=== PATIENT | female | born 1990 | race African-American/Black ===

== ENCOUNTER 2023-08-02 02:23 | Emergency (ER) | payer OTHER, MEDICAID, SELFPAY ==
[2023-08-02 02:27] VITALS: BP 132/90; PULSE 88; RESP 24; TEMP 36.5; O2SAT 98
--- NOTE | 2023-08-02 02:27 | ECG_ITS ---
SEE SCANNED COPY FOR CONFIRMED REPORT MTDD
[2023-08-02 02:31] VITALS: BP 138/82; PULSE 74; RESP 18; TEMP 36.7; O2SAT 100
[2023-08-02 02:51] LABS: Hematocrit 34.9 % (37.0-47.0); Hemoglobin 11.2 g/dL (12.0-15.0); Mean Corpuscular HGB Conc 32.1 g/dl (32-36); Mean Corpuscular Hemoglobin 29.9 pg (26-34); Mean Corpuscular Volume 93.1 fl (80-100); Mean Platelet Volume 10.4 fl (7.4-10.4); Platelet Count Result 256 k/mm3 (150-375); Red Blood Count 3.75 M/mm3 (4.2-5.4); Red Cell Distribution Width 12.8 % (11.5-14.5); White Blood Count 7.8 K/mm3 (4.5-10.0)
[2023-08-02 03:02] LABS: Alanine Aminotransferase 24 U/L (6-35); Alkaline Phosphatase 70 U/L (38-126); Anion Gap 9 mmol/L (4-12); Aspartate Amino Transferase 62 U/L (14-36); Bilirubin,Total 0.3 mg/dL (0.2-1.3); Blood Urea Nitrogen 15 mg/dL (7-17); Calcium 9.1 mg/dL (8.4-10.2); Carbon Dioxide 22 mmol/L (22-30); Chloride 106 mmol/L (98-107); Estimated CRCL calculation 74 ml/min; Estimated Glomerular Filt Rate > 60; Glucose 204 mg/dL (65-110); Lipase 164 U/L (23-300); Potassium 3.5 mmol/L (3.4-5.0); Sodium 137 mmol/L (137-145)
[2023-08-02 03:22] LABS: Basophils Absolute Manual 0.07 K/mm3 (0.0-0.1); Basophils Percent Manual 1 % (0-1); Eosinophils Absolute Manual 0.07 K/mm3 (0.02-0.50); Eosinophils Percent Manual 1 % (0-4); Monocytes Absolute Manual 0.31 K/mm3 (0.1-0.90); Monocytes Percent Manual 4 % (3-9); Neutrophils Percent Manual 25 % (46-73); Total Cells Counted 100
[2023-08-02 03:23] LABS: Metamyelocytes Percent 4 %
[2023-08-02 03:24] LABS: Lymphocytes Absolute Manual 5.07 K/mm3 (1.1-4.5); Lymphocytes Percent Manual 65 % (18-44); Platelet Estimate Adequate (Adequate); Schistocytes None Seen
[2023-08-02 04:34] VITALS: BP 123/76; PULSE 71; RESP 18; O2SAT 100
[2023-08-02] MEDS: SODIUM CHLORIDE 0.9% IV 1,000 ML 999 ML IV CONT (05:03)
[2023-08-02] MEDS: ONDANSETRON INJ 4 MG/2 ML VIAL IV PUSH (05:03)
[2023-08-02 05:15] LABS: Appearance Urine Clear (Clear); Bacteria Urine Rare /hpf; Bilirubin Urine Negative (Negative); Blood Urine Negative (Negative); Color Urine Yellow (Yellow); Glucose Urine UA Negative (Negative); Ketones Urine Negative (Negative); Leukocyte Esterase Ur Trace LEU/UL (Negative); Nitrate Urine Negative (Negative); Non Pathogenic Casts 0-2; Protein Urine Negative (Negative); RBC Urine 0-2 /hpf (0-2); Squamous Epithelial Cell Urine Occasional /hpf (Few); Urobilinogen Urine 0.2 mg/dL (<2.0); pH Urine 6.5 (5.0-9.0)
[2023-08-02 05:16] LABS: Add Urine Microscopic? YES
--- NOTE | 2023-08-02 06:07 | ED.GENADULT ---
HPI - General Adult General Chief complaint: Abdominal Pain Stated complaint: abd pain Time Seen by Provider: 08/02/23 04:39 History of Present Illness HPI narrative: Patient 33-year-old female who presents emergency department with chief complaint of nausea vomiting and stomach cramping. Patient reports the symptoms started about 30 minutes prior to arrival by the time she arrived in emergency department cramping inserted improved still feel now nauseated. Patient denies fever reports that she had no diarrhea reports that her abdominal discomfort has completely resolved at this point. Related Data Allergies Allergy/AdvReac Type Severity Reaction Status Date / Time No Known Allergies Allergy Verified 08/02/23 02:23 Review of Systems Review of Systems: A 10 system review of systems was completed on the patient and is negative except for what is stated in the HPI. Nursing and ancillary documentation was reviewed. Exam Narrative: GENERAL: Well-appearing, well-nourished, and in no acute distress. HEAD: Normocephalic, atraumatic. EYES: PERRLA and EOMI. ENT: Nares clear, no rhinorrhea or epistaxis. Mucous membranes moist. NECK: Supple. CHEST: Clear to auscultation. No respiratory distress. HEART: Regular rate and rhythm. No murmur heard. Normal peripheral pulses. ABDOMEN: Soft, nontender, nondistended, normal active bowel sounds. EXTREMITIES: Normal range of motion. No edema. SKIN: Warm, dry, no rash. NEURO: No focal deficits. Alert and oriented x3. PSYCH: Normal mood and affect. Course Vital Signs Vital signs: Vital Signs Temperature 36.5 C 08/02/23 02:27 Pulse Rate 88 08/02/23 02:27 Respiratory Rate 24 H 08/02/23 02:27 Blood Pressure 132/90 08/02/23 02:27 Pulse Oximetry 98 08/02/23 02:27 Oxygen Delivery Room Air 08/02/23 02:27 Temperature 36.7 C 08/02/23 02:31 Pulse Rate 71 08/02/23 04:34 Respiratory Rate 18 08/02/23 04:34 Blood Pressure 123/76 08/02/23 04:34 Pulse Oximetry 100 08/02/23 04:34 Oxygen Delivery Room Air 08/02/23 02:31 Medical Decision Making [facility] Narrative Medical decision making narrative: Differential diagnosis includes gastroenteritis, viral illness, nausea vomiting. Gastritis Laboratory studies were obtained the patient showed a white count of 7.8 electrolytes are within normal limits glucose was 204 but no anion gap and CO2 was 22 lipase was normal at 164 urinalysis showed 11-20 white blood cells in the urine The patient is feeling much better after receiving antiemetics and IV fluids. The patient was started on Keflex and also will be given a prescription for Zofran. Vital Signs Vital Signs: Vital Signs Temperature 36.5 C 08/02/23 02:27 Pulse Rate 88 08/02/23 02:27 Respiratory Rate 24 H 08/02/23 02:27 Blood Pressure 132/90 08/02/23 02:27 Pulse Oximetry 98 08/02/23 02:27 Oxygen Delivery Room Air 08/02/23 02:27 Temperature 36.7 C 08/02/23 02:31 Pulse Rate 71 08/02/23 04:34 Respiratory Rate 18 08/02/23 04:34 Blood Pressure 123/76 08/02/23 04:34 Pulse Oximetry 100 08/02/23 04:34 Oxygen Delivery Room Air 08/02/23 02:31 Lab Data 08/02/23 02:45 08/02/23 02:45 Labs: Lab Results 08/02/23 08/02/23 Range/Units 02:45 05:04 WBC 7.8 (4.5-10.0) K/mm3 RBC 3.75 L (4.2-5.4) M/mm3 Hgb 11.2 L (12.0-15.0) g/dL Hct 34.9 L (37.0-47.0) % MCV 93.1 (80-100) fl MCH 29.9 (26-34) pg MCHC 32.1 (32-36) g/dl RDW 12.8 (11.5-14.5) % Plt Count 256 (150-375) k/mm3 MPV 10.4 (7.4-10.4) fl Immature Gran % (Auto) Not Reportable Neut % (Auto) Not Reportable Lymph % (Auto) Not Reportable [place] % (Auto) Not Reportable Eos % (Auto) Not Reportable Baso % (Auto) Not Reportable Lymph # (Auto) Not Reportable [place] # (Auto) Not Reportable Eos # (Auto) Not Reportable Baso # (Auto) Not Reportable Abs Imm
== END 2023-08-02 06:17 | disposition home or self-care (01) ==
PROVIDERS: Emergency Provider Emergency Medicine
DX: N39.0 Urinary tract infection, site not specified (principal); R11.2 Nausea with vomiting, unspecified; R10.9 Unspecified abdominal pain; R94.31 Abnormal electrocardiogram [ECG] [EKG]
CPT/HCPCS: 36415; 80053; 81001; 81025; 83690; 85025; 87086; 87088; 93005; 96361; 96374; 99284; J2405; J7030